=== PATIENT | male | born 1950 | race African-American/Black ===

== ENCOUNTER 2020-06-08 16:48 | Emergency (ER) | payer OTHER ==
[~2020-06-08] VITALS: Ht 182.9 cm; Wt 59.9 kg
[2020-06-08] MEDS ORDERED: DILTIAZEM HCL 25 MG IV ONE (17:26)
[2020-06-08 17:41] LABS: HEMATOCRIT 49 % (39-51); HEMOGLOBIN 16.1 g/dL (13.5-17.5); LYMPHOCYTES # (AUTO) 0.7 /CMM (0.8-4.8); LYMPHOCYTES % (AUTO) 23.6 % (20.0-44.0); MEAN CORPUSCULAR HGB CONC 33 g/dl (31.0-36.0); MEAN CORPUSCULAR VOLUME 87 fL (80-96); MONOCYTES # (AUTO) 0.3 /CMM (0.1-1.30); MONOCYTES % (AUTO) 9.5 % (2.0-12.0); NEUTROPHILS # (AUTO) 1.9 /CMM (1.8-8.9); NEUTROPHILS % (AUTO) 65.9 % (43.0-81.0); PLATELET COUNT (AUTO) 202 /CMM (150-450); RED BLOOD CELL COUNT(AUTO) 5.71 MIL/uL (4.5-6.0); WHITE BLOOD COUNT (AUTO) 2.9 K/uL (4.3-11.0)
[2020-06-08] MEDS ORDERED: DILTIAZEM HCL 50 MG IV IV ONE ×4 (18:00→21:00)
[2020-06-08 18:18] LABS: D-DIMER 0.3 mg/L(FEU (0.17-0.50)
[2020-06-08 18:40] LABS: CALCIUM, SERUM 9.2 mg/dL (8.5-10.1); CARBON DIOXIDE 27 mmol/L (21-32); CHLORIDE 100 mmol/L (98-107); CREATININE 1.2 mg/dL (0.6-1.3); GLUCOSE 137 mg/dL (74-106); POTASSIUM 3.6 mmol/L (3.5-5.1); SODIUM SERUM 137 mmol/L (136-145); UREA NITROGEN, BLOOD 21 mg/dL (7-18)
[2020-06-08 18:42] LABS: MAGNESIUM 2.4 mg/dL (1.8-2.4)
[2020-06-08 19:26] LABS: THYROID STIMULATING HORMONE 1.65 uIU/mL (0.358-3.74)
[2020-06-08] MEDS ORDERED: DILTIAZEM HCL 50 MG IV ONE (20:35)
[2020-06-09 02:31] VITALS: BP 111/63
== END 2020-06-09 02:45 | disposition short-term general hospital (02) ==
LOC: ER 18:45
DX: I48.91 Unspecified atrial fibrillation (principal); D72.819 Decreased white blood cell count, unspecified; I44.4 Left anterior fascicular block; Z20.822 Contact with and (suspected) exposure to COVID-19; C92.11 Chronic myeloid leukemia, BCR/ABL-positive, in remission; R03.0 Elevated blood-pressure reading, without diagnosis of hypertension
CPT/HCPCS: 36415; 71045; 80048; 83735; 84443; 84484; 85025; 85378; 85730; 87081; 87426; 93005 ×2; 96374; 96376; 99291; J3490 ×2; C9803